=== PATIENT | male | born 1965 | race African-American/Black ===

== ENCOUNTER 2017-02-18 08:52 | Observation (INO) | payer OTHER ==
[2017-02-18] MEDS ORDERED: ASPIRIN 81 MG CHEW PO STA (09:17)
--- NOTE | 2017-02-18 09:20 | ED ---
General Adult HPI - General Chief complaint: Chest Pain Stated complaint: Chest pain Time Seen by Provider: 02/18/17 09:15 Source: patient, RN notes reviewed Mode of arrival: wheelchair Limitations: no limitations - History of Present Illness Initial comments: Patient is a pleasant 51-year-old male presenting to the emergency Department with chest discomfort. Symptoms have been intermittent for a couple of weeks. Discomfort is moderate at this time rated 5/10. Discomfort is ascribed as tightness without radiation. Mild associated dyspnea. No nausea or diaphoresis. Symptoms are worse with exertion. Patient has also been under increased stress recently. - Related Data Home Medications Medication Instructions Recorded Confirmed No Known Home Medications [No 02/18/17 02/18/17 Known Home Medications] Allergies Allergy/AdvReac Type Severity Reaction Status Date / Time No Known Allergies Allergy Verified 02/18/17 09:28 Review of Systems ROS Statement: Those systems with pertinent positive or pertinent negative responses have been documented in the HPI. ROS Other: All systems not noted in ROS Statement are negative. Constitutional: Denies: fever Eyes: Denies: eye pain ENT: Denies: ear pain Respiratory: Reports: dyspnea. Denies: cough Cardiovascular: Reports: chest pain Endocrine: Reports: fatigue Gastrointestinal: Denies: abdominal pain Genitourinary: Denies: dysuria Skin: Denies: rash Neurological: Denies: weakness Past Medical History Past Medical History: No Reported History History of Any Multi-Drug Resistant Organisms: None Reported Past Surgical History: No Surgical Hx Reported Past Psychological History: No Psychological Hx Reported Smoking Status: Never smoker Past Alcohol Use History: None Reported Past Drug Use History: None Reported General Exam Limitations: no limitations General appearance: alert, in no apparent distress Head exam: Present: atraumatic Eye exam: Present: normal appearance, PERRL ENT exam: Present: normal oropharynx Respiratory exam: Present: normal lung sounds bilaterally. Absent: chest wall tenderness Cardiovascular Exam: Present: regular rate, normal rhythm Expanded Peripheral pulses: 2+: Radial (R), Radial (L), Dorsalis Pedis (R), Dorsalis Pedis (L) GI/Abdominal exam: Present: soft. Absent: tenderness Extremities exam: Present: normal inspection. Absent: pedal edema, calf tenderness Neurological exam: Present: alert Psychiatric exam: Present: normal affect, normal mood Skin exam: Absent: rash Course Vital Signs 04/02/18/17 02/18/17 08:59 09:07 10:45 Temperature 98.5 F 97.5 F L Pulse Rate 93 85 79 Respiratory 18 20 15 Rate Blood Pressure 139/76 143/83 145/78 O2 Sat by Pulse 100 100 100 Oximetry EKG Findings - EKG Comments: EKG Findings:: Normal sinus rhythm 92. SD 128. QRS 82. QT 384. QTC 474. Normal axis. Borderline inferior Q waves. No acute ST change. Medical Decision Making - Medical Decision Making Patient reevaluated and resting comfortably in bed. Patient updated on results and plan. Case was discussed in detail with Dr. birmingham, who will admit for hospital call. Admission orders written. Cardiology consult placed. Patient will be started on IV heparin. - Lab Data Result diagrams: 02/18/17 09:30 02/18/17 09:30 Lab Results 02/18/17 02/18/17 02/18/17 Range/Units 09:30 09:30 09:30 WBC 6.4 (3.8-10.6) k/uL RBC 5.02 (4.30-5.90) m/uL Hgb 13.6 (13.0-17.5) gm/dL Hct 41.5 (39.0-53.0) % MCV 82.6 (80.0-100.0) fL MCH 27.1 (25.0-35.0) pg MCHC 32.8 (31.0-37.0) g/dL RDW 14.8 (11.5-15.5) % Plt Count 386 (150-450) k/uL Neutrophils % 71 % Lymphocytes % 20 % Monocytes % 4 % Eosinophils % 3 % Basophils % 0 % Neutrophils # 4.5 (1.3-7.7) k/uL Lymphocytes # 1.3 (1.0-4.8) k/uL Monocytes # 0.3 (0-1.0) k/uL Eosinophils # 0.2 (0-0.7) k/uL Basophils # 0.0 (0-0.2) k/uL PT (9.0-12.0) sec INR (<1.1) APTT (22.0-30.0) sec Sodium 140 (137-145) mmol/L Potassium 4.3 (3.5-5.1) mmol/L Chloride 104 (98-107) mmol/L Carbon Dioxide 25 (22-30) mmol/L Anion Gap 11 mmol/L BUN 13 (9-20) mg/dL Creatinine 0.84 (0.66-1.25) mg/dL Est GFR (MDRD) Af Amer >60 (>60 ml/min/1.73 sqM) Est GFR (MDRD) Non-Af >60 (>60 ml/min/1.73 sqM) Glucose 104 H (74-99) mg/dL Calcium 9.6 (8.4-10.2) mg/dL Magnesium 1.9 (1.6-2.3) mg/dL Total Bilirubin 0.5 (0.2-1.3) mg/dL AST 29 (17-59) U/L ALT 38 (21-72) U/L Alkaline Phosphatase 53 (38-126) U/L Total Creatine Kinase 242 H (55-170) U/L CK-MB (CK-2) 3.6 H* (0.0-2.4) ng/mL CK-MB (CK-2) Rel Index 1.5 Troponin I <0.012 (0.000-0.034) ng/mL Total Protein 7.4 (6.3-8.2) g/dL Albumin 4.3 (3.5-5.0) g/dL 02/18/17 Range/Units 09:30 WBC (3.8-10.6) k/uL RBC (4.30-5.90) m/uL Hgb (13.0-17.5) gm/dL Hct (39.0-53.0) % MCV (80.0-100.0) fL MCH (25.0-35.0) pg MCHC (31.0-37.0) g/dL RDW (11.5-15.5) % Plt Count (150-450) k/uL Neutrophils % % Lymphocytes % % Monocytes % % Eosinophils % % Basophils % % Neutrophils # (1.3-7.7) k/uL Lymphocytes # (1.0-4.8) k/uL Monocytes # (0-1.0) k/uL Eosinophils # (0-0.7) k/uL Basophils # (0-0.2) k/uL PT 10.2 (9.0-12.0) sec INR 1.0 (<1.1) APTT 26.3 (22.0-30.0) sec Sodium (137-145) mmol/L Potassium (3.5-5.1) mmol/L Chloride (98-107) mmol/L Carbon Dioxide (22-30) mmol/L Anion Gap mmol/L BUN (9-20) mg/dL Creatinine (0.66-1.25) mg/dL Est GFR (MDRD) Af Amer (>60 ml/min/1.73 sqM) Est GFR (MDRD) Non-Af (>60 ml/min/1.73 sqM) Glucose (74-99) mg/dL Calcium (8.4-10.2) mg/dL Magnesium (1.6-2.3) mg/dL Total Bilirubin (0.2-1.3) mg/dL AST (17-59) U/L ALT (21-72) U/L Alkaline Phosphatase (38-126) U/L Total Creatine Kinase (55-170) U/L CK-MB (CK-2) (0.0-2.4) ng/mL CK-MB (CK-2) Rel Index Troponin I (0.000-0.034) ng/mL Total Protein (6.3-8.2) g/dL Albumin (3.5-5.0) g/dL - Radiology Data Radiology results: image reviewed (Chest x-ray shows no acute process) Critical Care Time Critical Care Time: Yes Total Critical Care Time: 32 Disposition Clinical Impression: Unstable angina pectoris Disposition: ADMITTED IP TO THIS [facility] Time of Disposition: 11:01
[2017-02-18] MEDS ORDERED: NITROGLYCERIN SL TABS 0.4 MG TAB SUBLINGUAL SCH (09:30)
[2017-02-18 09:44] LABS: Basophils % (A) 0 %; CH 27.7; CHCM 33.6; Eosinophils # (A) 0.2 k/uL (0-0.7); Eosinophils % (A) 3 %; HCT 41.5 % (39.0-53.0); HGB 13.6 gm/dL (13.0-17.5); Luc # (Auto) 0.14; Luc % (Auto) 2; Lymphocytes # (A) 1.3 k/uL (1.0-4.8); Lymphocytes % (A) 20 %; MCH 27.1 pg (25.0-35.0); MCHC 32.8 g/dL (31.0-37.0); MCV 82.6 fL (80.0-100.0); Mean Platelet Volume 5.9; Monocytes # (A) 0.3 k/uL (0-1.0); Monocytes % (A) 4 %; Neutrophils # (A) 4.5 k/uL (1.3-7.7); Neutrophils % (A) 71 %; RBC 5.02 m/uL (4.30-5.90); RDW 14.8 % (11.5-15.5); WBC 6.4 k/uL (3.8-10.6); WBC (Perox) 6.47
[2017-02-18 09:52] LABS: ALT 38 U/L (21-72); AST 29 U/L (17-59); Alkaline Phosphatase 53 U/L (38-126); Anion Gap 11 mmol/L; Blood Urea Nitrogen 13 mg/dL (9-20); Calcium 9.6 mg/dL (8.4-10.2); Carbon Dioxide 25 mmol/L (22-30); Chloride 104 mmol/L (98-107); Glucose 104 mg/dL (74-99); Magnesium 1.9 mg/dL (1.6-2.3); Non-African American GFR(MDRD) >60 (>60 ml/min/1.73 sqM); Potassium 4.3 mmol/L (3.5-5.1); Sodium 140 mmol/L (137-145); Total Bilirubin 0.5 mg/dL (0.2-1.3); Total Protein 7.4 g/dL (6.3-8.2)
[2017-02-18 09:55] LABS: Partial Thromboplastin Time 26.3 sec (22.0-30.0); Prothrombin Time 10.2 sec (9.0-12.0)
[2017-02-18 10:13] LABS: Creatine Kinase 242 U/L (55-170)
[2017-02-18 10:26] LABS: Troponin I <0.012 ng/mL (0.000-0.034)
[2017-02-18 10:34] LABS: Creatine Kinase MB 3.6 ng/mL (0.0-2.4)
[2017-02-18] MEDS ORDERED: NITROGLYCERIN SL TABS 0.4 MG TAB SUBLINGUAL PRN (10:59)
[2017-02-18] MEDS ORDERED: HEPARIN SODIUM,PORCINE 5,000 UNIT/ML 1 ML VIAL IV PRN (10:59)
[2017-02-18] MEDS ORDERED: HEPARIN SODIUM,PORCINE 5,000 UNIT/ML 1 ML VIAL IV ONE (10:59)
--- NOTE | 2017-02-18 11:00 | XR ---
EXAMINATION TYPE: XR chest 2V DATE OF EXAM: 02/18/2017 10:01 AM COMPARISON: NONE HISTORY: Chest pain TECHNIQUE: Single frontal view of the chest is obtained. FINDINGS: There is no focal air space opacity, pleural effusion, or pneumothorax seen. The cardiac silhouette size is within normal limits. The osseous structures are intact. IMPRESSION: 1. No acute process.
[2017-02-18] MEDS: HEPARIN SODIUM,PORCINE/D5W PMX 25,000 UNIT in DEXTROSE/WATER 1 500ML.BAG IV SCH (11:26)
--- NOTE | 2017-02-18 13:29 | P.CRDCN ---
History of Present Illness Consult date: 02/18/17 History of present illness: This is a 51-year-old gentleman with no significant past medical history, has been experiencing chest pain for the last 6 months. 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 The pain is felt across the chest but sometimes more so on the left side and sometimes more so on the right side of the shoulder area. The pain increases on deep breathing. Chest is also slightly sore to touch. Movements of the chest also aggravate the pain. Because of ongoing chest pain patient came to the emergency room. His EKG showed a sinus rhythm without acute changes. Cardiac enzymes are negative so far. Patient doesn't have any history of previous myocardial infarctions or angina. He is not being treated for hypertension diabetes. He doesn't know his cholesterol status. He chest pains appear to be atypical clinically. We'll follow his cardiac enzymes studies. Echocardiogram will be done. If enzymes are negative, may do a stress echo in the morning. Review of Systems REVIEW OF SYSTEMS: CONSTITUTIONAL:. Patient is doing well. No complaints of fever or chills EYES: Denies diplopia, blurring of vision EARS, NOSE, MOUTH, THROAT: Denies headaches, denies sore throat. CARDIOVASCULAR: As per HPI RESPIRATORY: Denies shortness of breath, denies cough. GASTROINTESTINAL: Denies change in appetite, denies abdominal pain, denies diarrhea GENITOURINARY: Denies hematuria, denies infections. MUSKULOSKELETAL: Complaints of pain in the thigh area INTEGUMENTARY: Denies rash, denies eczema. NEUROLOGICAL: Denies focal weakness, or visual disturbance. Denies any dizziness or syncope PSYCHIATRIC: Denies anxiety, denies depression. HEMATOLOGIC/LYMPHATIC: Denies any bleeding, denies enlarged lymph nodes. Past Medical History Past Medical History: No Reported History History of Any Multi-Drug Resistant Organisms: None Reported Past Surgical History: No Surgical Hx Reported Past Anesthesia/Blood Transfusion Reactions: Unable to Obtain Additional Past Anesthesia/Blood Transfusion Reaction / Comment(s): Pt has never had anesthesia. Past Psychological History: Depression Additional Psychological History / Comment(s): Pt states he and his family just moved to this area from [facility] about 1.5 months ago. Pt states he just started a new job. He states he has been overwhelmed with stress lately. His spouse is disabled. He has 2 children, a boy age 14yrs who is healthy and a girl, age 13 who has down's syndrome and requires alot of care. Smoking Status: Never smoker Past Alcohol Use History: Occasional Past Drug Use History: None Reported - Past Family History Father History Unknown: Yes Mother Family Medical History: Hyperlipidemia, Hypertension Medications and Allergies Home Medications Medication Instructions Recorded Confirmed Type No Known Home Medications [No 02/18/17 02/18/17 History Known Home Medications] Allergies Allergy/AdvReac Type Severity Reaction Status Date / Time No Known Allergies Allergy Verified 02/18/17 09:28 Physical Exam Vitals: Vital Signs Temp Pulse Pulse Resp BP BP Pulse Ox 02/18/17 12:42 98.4 F 86 18 148/95 100 02/18/17 11:56 97.8 F 78 15 141/71 100 Intake and Output 02/17/17 02/18/17 02/18/17 22:59 06:59 14:59 Other: Weight 82.6 kg Patient Weight 02/19/17 06:59 Weight 82.6 kg GENERAL EXAM: Patient is alert and oriented and doesn't appear to be in any acute distress HEENT: Normocephalic. Normal reaction of pupils, equal size, normal range of extraocular motion. No erythema or exudates in the throat. NECK: No masses, no nuchal rigidity. CHEST: No chest wall deformity. LUNGS: Equal air entry with no crackles or wheeze. HEART: S1 and S2 normal with no audible mumurs or gallops. Regular rhythm, femorals equal on both sides.. ABDOMEN: No hepatosplenomegaly, normal bowel sounds, no guarding or rigidity. SKIN: No rashes CENTRAL NERVOUS SYSTEM: No focal deficits. EXTREMITIES: No cyanosis, clubbing or edema. Results 02/18/17 09:30 02/18/17 09:30 Current Medications Generic Name Dose Route Start Last Admin Trade Name Freq PRN Reason Stop Dose Admin Aspirin 325 mg 02/19/17 09:00 Aspirin PO DAILY DEION Heparin Sodium (Porcine) 0 unit 02/18/17 10:59 Heparin IV Q6HR PRN Low PTT Protocol Heparin Sodium/Dextrose 25,000 500 mls @ 19.59 mls/hr 02/18/17 11:00 11:26 unit/ IV Solution IV 12 units/kg/hr .Q24H DEION 19.59 mls/hr Protocol Administration 12 UNITS/KG/HR Nitroglycerin 1 inch 02/18/17 12:30 Nitro-Bid Oint TOPICAL Q6HR [facility] Nitroglycerin 0.4 mg 02/18/17 10:59 Nitrostat SUBLINGUAL Q5M PRN Chest Pain Sodium Chloride 10 ml 02/18/17 21:00 Saline Flush IV BID [facility] Intake and Output 02/17/17 02/18/17 02/18/17 22:59 06:59 14:59 Other: Weight 82.6 kg Patient Weight 02/19/17 06:59 Weight 82.6 kg EKG Interpretations (text) Sinus rhythm Assessment and Plan (1) Chest pain Status: Acute Plan: He chest pains appear to be atypical. Will follow Cardiac enzymes studies. Echocardiogram will be done. If enzymes are negative, patient will be scheduled for a stress echo in morning.
[2017-02-18 14:13] VITALS: BMI 23.3
[2017-02-18 15:30] LABS: Creatine Kinase 198 U/L (55-170)
[2017-02-18 15:43] LABS: Troponin I <0.012 ng/mL (0.000-0.034)
[2017-02-18 15:48] LABS: Creatine Kinase MB 2.8 ng/mL (0.0-2.4)
[2017-02-18 16:10] VITALS: RESP 16
[2017-02-18] MEDS: NITROGLYCERIN OINT 1 INCH/GM PACKET TOPICAL SCH (18:53)
[2017-02-18 21:51] LABS: Creatine Kinase 231 U/L (55-170)
[2017-02-18 22:05] LABS: Troponin I <0.012 ng/mL (0.000-0.034)
[2017-02-18 22:14] LABS: Creatine Kinase MB 2.6 ng/mL (0.0-2.4)
[2017-02-19] MEDS: NITROGLYCERIN OINT 1 INCH/GM PACKET TOPICAL SCH ×3 (00:08→12:15)
[2017-02-19 07:17] LABS: Mean Platelet Volume 5.9
[2017-02-19 07:28] LABS: Cholesterol 142 mg/dL (<200); HDL Cholesterol 80 mg/dL (40-60); Triglycerides 139 mg/dL (<150)
[2017-02-19] MEDS ORDERED: ASPIRIN 325 MG TAB PO SCH (09:00)
[2017-02-19] MEDS ORDERED: FAMOTIDINE 20 MG TAB PO SCH (10:30)
--- NOTE | 2017-02-19 10:33 | ECHOF ---
Referral Reason:Chest pain and cardiomyopathy MEASUREMENTS -------- HEIGHT: 182.9 cm WEIGHT: 82.6 kg BP: 116/76 IVSd: 1.0 cm (0.6 - 1.1) LVIDd: 4.5 cm (3.9 - 5.3) LVPWd: 1.1 cm (0.6 - 1.1) IVSs: 1.8 cm LVIDs: 3.0 cm LVPWs: 1.4 cm Ao Diam: 3.0 cm (2.0 - 3.7) AV Cusp: 2.3 cm (1.5 - 2.6) LA Diam: 3.7 cm (2.7 - 3.8) MV EXCURSION: 19.436 mm (> 18.000) MV EF SLOPE: 69 mm/s (70 - 150) EPSS: 0.4 cm MV E Jc: 0.48 m/s MV DecT: 295 ms MV A Jc: 0.59 m/s MV E/A Ratio: 0.80 RAP: 5.00 mmHg RVSP: 19.45 mmHg FINDINGS -------- Sinus rhythm. This was a technically good study. Left ventricular wall thickness is normal. Overall left ventricular systolic function is normal with, an EF between 55 - 60 %. The right ventricle is normal in size and function. The left atrium is normal in size. The right atrium is normal in size. Aortic valve is trileaflet and is mildly thickened. The mitral valve leaflets are mildly thickened. There is trace mitral regurgitation. Mild tricuspid regurgitation present. The right ventricular systolic pressure, as measured by Doppler, is 19.45mmHg. Pulmonic valve appears structurally normal. The aortic root size is normal. The pericardium is normal. CONCLUSIONS -------- 1. Sinus rhythm. 2. There is trace mitral regurgitation. 3. Mild tricuspid regurgitation present. 4. The right ventricular systolic pressure, as measured by Doppler, is 19.45mmHg. 5. Pulmonic valve appears structurally normal. 6. The aortic root size is normal. 7. The pericardium is normal. 8. This was a technically good study. 9. Left ventricular wall thickness is normal. 10. Overall left ventricular systolic function is normal with, an EF between 55 - 60 %. 11. The right ventricle is normal in size and function. 12. The left atrium is normal in size. 13. The right atrium is normal in size. 14. Aortic valve is trileaflet and is mildly thickened. 15. The mitral valve leaflets are mildly thickened. [employer] CENTRIFUGAL OPERATOR: Radhika Monahan RDCS
--- NOTE | 2017-02-19 11:40 | HP ---
DATE OF ADMISSION: 02/18/2017 PRESENTING COMPLAINT: Chest pain. HISTORY OF PRESENTING COMPLAINT: This is a 51-year-old patient whose family doctor is out of [place] has unremarkable past medical history. The patient is here with his . The patient started a new job, has got a daughter with Down syndrome. Patient's was in the hospital with uterine bleeding from fibroids. In addition to starting a new job, the patient feels very stressed out to the point of getting panic attacks. The patient for 2 months ( ) pressure across the chest, sometimes across, sometimes localized to the center, sometimes going to the right arm. Yesterday patient was a little bit short of breath. No perspiration, occasional dizziness, but patient does seem extremely anxious and states that. Hence, patient is admitted here to rule out cardiac cause. Patient has been in pretty good health otherwise, rather active. REVIEW OF SYSTEMS: CONSTITUTIONAL: None. HEENT: None. RESPIRATORY: None. CARDIOVASCULAR: As above. GASTROINTESTINAL: Epigastric pain. GENITOURINARY: None. MUSCULOSKELETAL: Some lower back pain. DERMATOLOGICAL: None. HEMATOLOGICAL: None. LYMPHATICS: None. PSYCHIATRY: Very anxious. NEUROLOGICAL: None. PAST MEDICAL HISTORY: None. PAST SURGICAL HISTORY: None. SOCIAL HISTORY: . Started a new job at a [employer]. with a disabled daughter with Down syndrome. No smoking. The patient has been drinking about 24 ounce 20 beers a week now. Family history of hypertension, hyperlipidemia. HOME MEDICATIONS: None. ALLERGIES: None. On examination, temperature 98, pulse 70, respiration 16, blood pressure 113/79, pulse ox 100% on 2 L. GENERAL APPEARANCE: Average built, lying in bed, very anxious appearing. EYES: Pupils equal. Conjunctivae normal. HENT: Oral cavity normal. NECK: JVD not raised. Mass not palpable. RESPIRATORY: Effort normal. LUNGS: Fair air entry. CARDIOVASCULAR: First and second sounds normal. No edema. ABDOMEN: Epigastric tenderness. Liver and spleen not palpable. LYMPHATIC: No lymph node palpable in neck or axillae. PSYCHIATRY: Alert and oriented x3. Mood and affect anxiety, depression. NEUROLOGICAL: Pupils equal. Cranial nerves grossly intact. Power and sensation grossly intact. INVESTIGATIONS: White count 6.4, hemoglobin 13.6. Potassium 4.3. BUN and creatinine are normal. Troponin x3 negative. EKG nonspecific changes. Chest x-ray nil acute. ASSESSMENT: 1. This is a patient for 2 months been having chest pain with some cardiac features and some atypical features. Patient otherwise at baseline in good health, rather active. This could well be psychosomatic, but need to rule out a cardiac cause. 2. Anxiety disorder uncontrolled from social stressors. 3. Chronic alcohol use. 4. Likely gastritis from alcohol use. PLAN: Patient is on aspirin, IV heparin, nitro paste. Cardiology has been consulted, who ordered a stress test. Patient advised against alcohol, will be started on Pepcid. Patient asked to seek psychological counseling . This discussed with the . Questions were answered. Patient advised to ( ). Patient will be established with Dr. Song as a family doctor.
[2017-02-19] MEDS: HEPARIN SODIUM,PORCINE/D5W PMX 25,000 UNIT in DEXTROSE/WATER 1 500ML.BAG IV SCH (12:14)
--- NOTE | 2017-02-19 12:15 | ECHOS ---
DATE OF SERVICE: 02/19/2017 AGE: 51Y SEX: M HT: 74 WT: 182 lbs. Protocol Rome: X Others: Stress Echo Stage: II Dur. of Exercise: 6 minutes *Heart Rate Blood Pressure *Rest: 74 Rest: 113/65 * *Max. Achieved: 156 Maximum BP: 199/82 85% PMHR: 145 100% PMHR: 171 *METS: 7 INDICATIONS: Chest pain. MEDICATIONS: Aspirin. CLINICAL INFORMATION: Chest pain, history of low back pain also. Resting ECG shows sinus rhythm, rate of 74 beats per minute, KS interval 0.16, QRS 0.08, normal ST-T waves. Utilizing a standard Rome protocol, a symptom limited treadmill test was performed. Patient exercised for total of 6 minutes, attained a peak heart rate of 156 beats per minute, which is approximately 91% predicted maximum heart rate without any chest pain or pressure or ST segment deviations indicative of ischemia or symptoms. No cardiac arrhythmias are noted. Baseline images show normal thickening and contractility without hypokinetic dyskinetic segment. Postexercise images show improved contractility and thickening in all segments, consistent with normal stress echocardiogram without any hypokinetic dyskinetic segments. 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 Normal stress echocardiogram. 2. Patient did not report any symptoms throughout the study. 3. Patient has average level of cardiopulmonary fitness as indicated by VO2 max and METs. Patient attained peak metabolic activity equivalent to 7 METs.
[2017-02-19 16:19] VITALS: BP 112/75; PULSE 70; TEMP 98.7
[2017-02-19] MEDS ORDERED: MELATONIN 1 MG TAB PO SCH (21:00)
--- NOTE | 2017-02-23 20:10 | DS ---
DATE OF ADMISSION: 02/18/2017 DATE OF DISCHARGE: 02/19/2017 FINAL DIAGNOSIS(ES): 1. Left anterior chest wall pain, could be musculoskeletal possibly psychosomatic too. 2. Anxiety disorder uncontrolled from social stresses. 3. Chronic alcohol use. 4. Likely gastritis from alcohol use. HOSPITAL COURSE: This patient being treated for stressors, a new job, adopted daughter who is disabled presented with chest pain. Troponins were negative. LDL was 34. Stress echocardiogram was negative. The patient and counselled at length. CONSULTATIONS: Dr. Ding cardiology. On examination, lungs are clear. CARDIOVASCULAR: First and second sounds normal. Some reproducible pain over the left chest wall. DISCHARGE MEDICATIONS: Prilosec 20 mg p.o. b.i.d. Follow-up with Dr. Song in one week. Follow-up with Dr. Pickering ).
== END 2017-02-19 17:00 | disposition home or self-care (01) ==
LOC: EC 08:52 → 3OBS 10:59
PROVIDERS: ADMIT Hospitalist; ATTEND Hospitalist
DX: R07.89 Other chest pain (principal); R06.00 Dyspnea, unspecified; F41.9 Anxiety disorder, unspecified; F43.9 Reaction to severe stress, unspecified; Z82.49 Family history of ischemic heart disease and other diseases of the circulatory system; Z72.89 Other problems related to lifestyle
CPT/HCPCS: 96376 ×2; 96365 ×2; 96366 ×2; 99291; 36415; 94760; 93005; 93017; 93306; 93350; 80061; 80053; 82550; 82553; 83735; 84484; 85025; 85049; 85610; 85730 ×2; 71020; G0378 ×2; J1644 ×2; 96374

== ENCOUNTER 2017-04-14 11:20 | Emergency (ER) | payer BC, OTHER ==
[2017-04-14 11:32] VITALS: BP 120/77; PULSE 78; RESP 20; TEMP 98.4
--- NOTE | 2017-04-14 11:54 | ED ---
General Adult HPI - General Chief complaint: Recheck/Abnormal Lab/Rx Stated complaint: Vomiting Time Seen by Provider: 04/14/17 11:30 Source: patient, RN notes reviewed Mode of arrival: ambulatory Limitations: no limitations - History of Present Illness Initial comments: This is a 51-year-old male presents emergency department stating at 4:30 this morning he vomited times one had diarrhea times one. He called into work because he didn't think he could work feeling this bad. Patient states since then he has not vomited or had any more diarrhea and he slowly feeling better. Patient states he has not taken any fluids in or eaten since. Patient denies any fever chills per patient denies any abdominal pain. Patient states he has right sided lateral back pain possibly from something he picked up at work. Patient states it only hurts if he takes a deep breath. Patient denies any cough patient denies any shortness of breath or difficulty breathing. Patient denies any chest pain. Patient denies any palpitations. - Related Data Previous Rx's Medication Instructions Recorded Omeprazole [PriLOSEC] 20 mg PO AC-BID #60 cap 02/19/17 Ibuprofen [Motrin] 600 mg PO Q6HR PRN #20 tab 04/14/17 Allergies Allergy/AdvReac Type Severity Reaction Status Date / Time No Known Allergies Allergy Verified 04/14/17 11:32 Review of Systems ROS Statement: Those systems with pertinent positive or pertinent negative responses have been documented in the HPI. ROS Other: All systems not noted in ROS Statement are negative. Past Medical History Past Medical History: No Reported History History of Any Multi-Drug Resistant Organisms: None Reported Past Surgical History: No Surgical Hx Reported Past Anesthesia/Blood Transfusion Reactions: Unable to Obtain Additional Past Anesthesia/Blood Transfusion Reaction / Comment(s): Pt has never had anesthesia. Past Psychological History: Depression Additional Psychological History / Comment(s): Pt states he and his family just moved to this area from [facility] about 1.5 months ago. Pt states he just started a new job. He states he has been overwhelmed with stress lately. His spouse is disabled. He has 2 children, a boy age 14yrs who is healthy and a girl, age 13 who has down's syndrome and requires alot of care. Smoking Status: Never smoker Past Alcohol Use History: Occasional Past Drug Use History: None Reported - Past Family History Father History Unknown: Yes Mother Family Medical History: Hyperlipidemia, Hypertension General Exam - General Exam Comments Initial Comments: GENERAL: Patient is well-developed and well-nourished. Patient is nontoxic and well- hydrated and is in no acute distress. ENT: Neck is soft and supple. No significant lymphadenopathy is noted. Oropharynx is clear. Moist mucous membranes. Neck has full range of motion without eliciting any pain. EYES: The sclera were anicteric and conjunctiva were pink and moist. Extraocular movements were intact and pupils were equal round and reactive to light. Eyelids were unremarkable. PULMONARY: Unlabored respirations. Good breath sounds bilaterally. No audible rales rhonchi or wheezing was noted. CARDIOVASCULAR: There is a regular rate and rhythm without any murmurs gallops or rubs. ABDOMEN: Soft and nontender with normal bowel sounds. No palpable organomegaly was noted. There is no palpable pulsatile mass. SKIN: Skin is clear with no lesions or rashes and otherwise unremarkable. NEUROLOGIC: Patient is alert and oriented x3. Cranial nerves II through XII are grossly intact. Motor and sensory are also intact. Normal speech, volume and content. Symmetrical smile. MUSCULOSKELETAL: Normal extremities with adequate strength and full range of motion. No lower extremity swelling or edema. No calf tenderness. LYMPHATICS: No significant lymphadenopathy is noted PSYCHIATRIC: Normal psychiatric evaluation. Normal interpersonal interactions appears functionally intact in deals appropriately with others. No signs of depression. No signs of anxiety. Limitations: no limitations Course Vital Signs 04/14/17 11:30 Temperature 98.4 F Pulse Rate 78 Respiratory 20 Rate Blood Pressure 120/77 O2 Sat by Pulse 99 Oximetry Medical Decision Making - Medical Decision Making Patient stated he has no symptoms currently and he needs a work note. Disposition Clinical Impression: Gastroenteritis Disposition: HOME SELF-CARE Condition: Good Instructions: Gastroenteritis (ED) Prescriptions: Ibuprofen [Motrin] 600 mg PO Q6HR PRN #20 tab PRN Reason: For pain Referrals: Raquel Abraham DO [Primary Care Provider] - 1-2 days Time of Disposition: 11:54
[2017-04-14] MEDS ORDERED: ONDANSETRON 4 MG ODT STARTER PACK 2 TAB BTL PO STA (11:55)
== END 2017-04-14 12:10 | disposition home or self-care (01) ==
LOC: EC 11:20
DX: K52.9 Noninfective gastroenteritis and colitis, unspecified (principal); M54.9 Dorsalgia, unspecified
CPT/HCPCS: 99283; S0119

== ENCOUNTER 2018-02-12 13:00 | Observation (INO) | payer BC, OTHER ==
--- NOTE | 2018-02-12 13:57 | XR ---
EXAMINATION TYPE: XR chest 2V DATE OF EXAM: 02/12/2018 COMPARISON: 02/18/2017 HISTORY: Chest pain TECHNIQUE: Frontal and lateral views of the chest are obtained. FINDINGS: There is no focal air space opacity. No evidence for pneumothorax. No pleural effusion. The cardiac silhouette size is within normal limits. The osseous structures are grossly intact. IMPRESSION: 1. No acute cardiopulmonary process.
[2018-02-12 14:09] LABS: Basophils % (A) 0 %; Eosinophils # (A) 0.2 k/uL (0-0.7); Eosinophils % (A) 3 %; HCT 41.8 % (39.0-53.0); HGB 13.9 gm/dL (13.0-17.5); Lymphocytes # (A) 1.6 k/uL (1.0-4.8); Lymphocytes % (A) 27 %; MCH 26.2 pg (25.0-35.0); MCHC 33.2 g/dL (31.0-37.0); MCV 78.9 fL (80.0-100.0); Microcytosis Slight; Monocytes # (A) 0.4 k/uL (0-1.0); Monocytes % (A) 6 %; Neutrophils # (A) 3.7 k/uL (1.3-7.7); Neutrophils % (A) 62 %; Platelet Count 339 k/uL (150-450); RDW 15.4 % (11.5-15.5); WBC 5.9 k/uL (3.8-10.6)
[2018-02-12 14:20] LABS: Partial Thromboplastin Time 26.3 sec (22.0-30.0)
--- NOTE | 2018-02-12 14:23 | ED ---
General Adult HPI - General Chief complaint: Chest Pain Stated complaint: Chest pain,Sob Time Seen by Provider: 02/12/18 13:10 Source: patient, RN notes reviewed, old records reviewed Mode of arrival: wheelchair Limitations: no limitations - History of Present Illness Initial comments: This is a 52-year-old male to the ER for evaluation of chest pain history of chest pain and angina. No recent symptoms. Patient states he's had some increased stress at work new job, new position. states she is not feeling well, chest pain started and not feeling well started today with shortness of breath. No prior history of heart attack. Patient denies drugs or alcohol. Patient just states he's not feeling himself and can't seem to figure out why he is feeling so out of it. No travel history no sick contacts. - Related Data Home Medications Medication Instructions Recorded Confirmed No Known Home Medications [No 02/12/18 02/12/18 Known Home Medications] Allergies Allergy/AdvReac Type Severity Reaction Status Date / Time No Known Allergies Allergy Verified 02/12/18 13:19 Review of Systems ROS Statement: Those systems with pertinent positive or pertinent negative responses have been documented in the HPI. ROS Other: All systems not noted in ROS Statement are negative. Past Medical History Past Medical History: Chest Pain / Angina History of Any Multi-Drug Resistant Organisms: None Reported Past Surgical History: No Surgical Hx Reported Past Anesthesia/Blood Transfusion Reactions: Unable to Obtain Additional Past Anesthesia/Blood Transfusion Reaction / Comment(s): Pt has never had anesthesia. Past Psychological History: Depression Smoking Status: Never smoker Past Alcohol Use History: Occasional Past Drug Use History: None Reported - Past Family History Father History Unknown: Yes Mother Family Medical History: Hyperlipidemia, Hypertension General Exam Limitations: no limitations General appearance: alert, in no apparent distress Head exam: Present: atraumatic, normocephalic, normal inspection Eye exam: Present: normal appearance, PERRL, EOMI. Absent: scleral icterus, conjunctival injection, periorbital swelling ENT exam: Present: normal exam, mucous membranes moist Neck exam: Present: normal inspection. Absent: tenderness, meningismus, lymphadenopathy Respiratory exam: Present: normal lung sounds bilaterally. Absent: respiratory distress, wheezes, rales, rhonchi, stridor Cardiovascular Exam: Present: regular rate, normal rhythm, normal heart sounds. Absent: systolic murmur, diastolic murmur, rubs, gallop, clicks GI/Abdominal exam: Present: soft, normal bowel sounds. Absent: distended, tenderness, guarding, rebound, rigid Extremities exam: Present: normal inspection, full ROM, normal capillary refill. Absent: tenderness, pedal edema, joint swelling, calf tenderness Back exam: Present: normal inspection Neurological exam: Present: alert, oriented X3, CN II-XII intact Psychiatric exam: Present: normal affect, normal mood Skin exam: Present: warm, dry, intact, normal color. Absent: rash Course Vital Signs 02/12/18 02/12/18 02/12/18 13:06 13:38 14:30 Temperature 98.5 F Pulse Rate 67 78 77 Respiratory 18 18 18 Rate Blood Pressure 142/79 124/81 131/89 O2 Sat by Pulse 95 98 98 Oximetry - Reevaluation(s) Reevaluation #1: 02/12/18 16:14 Patient remains episodic chest pain, not feeling well EKG Findings - EKG Comments: EKG Findings:: EKG shows sinus rhythm rate of 70, NV 1:30, QRS 100, QTC 427 Medical Decision Making - Medical Decision Making 52 male the ER for evaluation of chest pain. Continue chest pain here in the ER , troponin negative we'll admit for cardiac observation - Lab Data Result diagrams: 02/12/18 13:24 02/12/18 13:24 Lab Results 02/12/18 02/12/18 02/12/18 Range/Units 13:24 13:24 13:24 WBC 5.9 (3.8-10.6) k/uL RBC 5.30 (4.30-5.90) m/uL Hgb 13.9 (13.0-17.5) gm/dL Hct 41.8 (39.0-53.0) % MCV 78.9 L (80.0-100.0) fL MCH 26.2 (25.0-35.0) pg MCHC 33.2 (31.0-37.0) g/dL RDW 15.4 (11.5-15.5) % Plt Count 339 (150-450) k/uL Neutrophils % 62 % Lymphocytes % 27 % Monocytes % 6 % Eosinophils % 3 % Basophils % 0 % Neutrophils # 3.7 (1.3-7.7) k/uL Lymphocytes # 1.6 (1.0-4.8) k/uL Monocytes # 0.4 (0-1.0) k/uL Eosinophils # 0.2 (0-0.7) k/uL Basophils # 0.0 (0-0.2) k/uL Microcytosis Slight PT (9.0-12.0) sec INR (<1.2) APTT (22.0-30.0) sec Sodium 144 (137-145) mmol/L Potassium 4.0 (3.5-5.1) mmol/L Chloride 106 (98-107) mmol/L Carbon Dioxide 22 (22-30) mmol/L Anion Gap 16 mmol/L BUN 12 (9-20) mg/dL Creatinine 0.70 (0.66-1.25) mg/dL Est GFR (CKD-EPI)AfAm >90 (>60 ml/min/1.73 sqM) Est GFR (CKD-EPI)NonAf >90 (>60 ml/min/1.73 sqM) Glucose 97 (74-99) mg/dL Calcium 9.5 (8.4-10.2) mg/dL Magnesium 2.0 (1.6-2.3) mg/dL Total Bilirubin 0.3 (0.2-1.3) mg/dL AST 33 (17-59) U/L ALT 34 (21-72) U/L Alkaline Phosphatase 54 (38-126) U/L Total Creatine Kinase 315 H (55-170) U/L CK-MB (CK-2) 4.9 H* (0.0-2.4) ng/mL CK-MB (CK-2) Rel Index 1.6 Troponin I <0.012 (0.000-0.034) ng/mL Total Protein 7.0 (6.3-8.2) g/dL Albumin 4.1 (3.5-5.0) g/dL 02/12/18 Range/Units 13:24 WBC (3.8-10.6) k/uL RBC (4.30-5.90) m/uL Hgb (13.0-17.5) gm/dL Hct (39.0-53.0) % MCV (80.0-100.0) fL MCH (25.0-35.0) pg MCHC (31.0-37.0) g/dL RDW (11.5-15.5) % Plt Count (150-450) k/uL Neutrophils % % Lymphocytes % % Monocytes % % Eosinophils % % Basophils % % Neutrophils # (1.3-7.7) k/uL Lymphocytes # (1.0-4.8) k/uL Monocytes # (0-1.0) k/uL Eosinophils # (0-0.7) k/uL Basophils # (0-0.2) k/uL Microcytosis PT 10.0 (9.0-12.0) sec INR 1.0 (<1.2) APTT 26.3 (22.0-30.0) sec Sodium (137-145) mmol/L Potassium (3.5-5.1) mmol/L Chloride (98-107) mmol/L Carbon Dioxide (22-30) mmol/L Anion Gap mmol/L BUN (9-20) mg/dL Creatinine (0.66-1.25) mg/dL Est GFR (CKD-EPI)AfAm (>60 ml/min/1.73 sqM) Est GFR (CKD-EPI)NonAf (>60 ml/min/1.73 sqM) Glucose (74-99) mg/dL Calcium (8.4-10.2) mg/dL Magnesium (1.6-2.3) mg/dL Total Bilirubin (0.2-1.3) mg/dL AST (17-59) U/L ALT (21-72) U/L Alkaline Phosphatase (38-126) U/L Total Creatine Kinase (55-170) U/L CK-MB (CK-2) (0.0-2.4) ng/mL CK-MB (CK-2) Rel Index Troponin I (0.000-0.034) ng/mL Total Protein (6.3-8.2) g/dL Albumin (3.5-5.0) g/dL - Radiology Data Radiology results: report reviewed (Chest x-rays negative for acute disease), image reviewed Disposition Clinical Impression: Chest pain, Unstable angina pectoris Disposition: ADMITTED IP TO THIS [facility] Condition: Undetermined Referrals: None,Stated [Primary Care Provider] - 1-2 days
[2018-02-12 14:26] LABS: ALT 34 U/L (21-72); AST 33 U/L (17-59); Albumin 4.1 g/dL (3.5-5.0); Alkaline Phosphatase 54 U/L (38-126); Anion Gap 16 mmol/L; Blood Urea Nitrogen 12 mg/dL (9-20); Calcium 9.5 mg/dL (8.4-10.2); Carbon Dioxide 22 mmol/L (22-30); Chloride 106 mmol/L (98-107); Glucose 97 mg/dL (74-99); Sodium 144 mmol/L (137-145); Total Bilirubin 0.3 mg/dL (0.2-1.3)
[2018-02-12 14:44] LABS: Creatine Kinase 315 U/L (55-170)
[2018-02-12 14:57] LABS: Troponin I <0.012 ng/mL (0.000-0.034)
[2018-02-12] MEDS ORDERED: MORPHINE SULFATE 4MG/4ML SYRG IV PRN (16:08)
[2018-02-12] MEDS ORDERED: ASPIRIN 81 MG PO STA (16:08)
[2018-02-12] MEDS ORDERED: NITROGLYCERIN SL TABS 0.4 MG TAB SUBLINGUAL PRN (16:08)
[2018-02-12] MEDS ORDERED: RX INFO: IV CONTRAST WAS GIVEN 1 EACH MISC MISCELLANE PRN (17:12)
[2018-02-12] MEDS ORDERED: ACETAMINOPHEN TAB 325 MG TAB PO PRN (17:27)
[2018-02-12] MEDS ORDERED: KETOROLAC 30 MG/ML 1 ML VIAL IVP PRN (17:27)
[2018-02-12] MEDS ORDERED: NALOXONE 0.4 MG/ML 1 ML VIAL IV PRN (17:27)
[2018-02-12] MEDS ORDERED: HYDROcodone/APAP 5-325MG 1 EACH TAB PO PRN (17:27)
[2018-02-12] MEDS ORDERED: ALPRAZolam 0.25 MG TAB PO PRN (17:27)
--- NOTE | 2018-02-12 17:29 | P.HPIM ---
History of Present Illness H&P Date: 02/12/18 Chief Complaint: chest pain Patient is a 52-year-old -[place] male with no significant past medical history who presented to the hospital with complaints of chest pain. In the ER he underwent an extensive evaluation. On arrival he was slightly hypertensive blood pressure 142/79 but this resolved without intervention. Initial laboratory analysis showed slightly elevated CK-MB at 4.9. Chest x-ray showed no acute cardiopulmonary process. Initial EKG was unremarkable. He was admitted for chest pain evaluation. Patient seen and examined at bedside. He states that he has been having left- sided chest pain for the last 2 weeks. He overall just does not feel right. He states that he has had increased stress and felt anxious over the last 2 weeks. He states that the chest pain mostly occurs at rest. It seems better with movement. He states that some of this may be stress related. He has had increased shortness of breath with his anxiety. He denies any numbness, tingling, lightheadedness, dizziness. He has not fainted or passed out. He has not had palpitations. He denies any nausea or vomiting. He has not had anything similar. He does do a lot of heavy lifting at work. He reports that his maternal grandfather of a massive heart attack at age 63. He does not smoke but does take it daily Maddie aspirin. He does not have a PCP. He was seen here exactly one year ago and underwent a stress test which was negative. He has been having difficulty sleeping secondary to his stress. He also reports that he has had a lump under his tongue for over the last year. He has not had this investigated in the past. Review of Systems Pertinent positives and negatives as per HPI, remainder of 10 point review of systems is negative. Past Medical History Past Medical History: Chest Pain / Angina Additional Past Medical History / Comment(s): past stress test, anx/depression, under stress latley,restless at night and difficulty sleeping. "i have a lump underneath tongue" History of Any Multi-Drug Resistant Organisms: None Reported Past Surgical History: Tonsillectomy Past Anesthesia/Blood Transfusion Reactions: No Reported Reaction Additional Past Anesthesia/Blood Transfusion Reaction / Comment(s): Pt has never had anesthesia. Past Psychological History: Depression Additional Psychological History / Comment(s): He states he has been overwhelmed with stress lately(between work and home). His spouse is disabled. He has 2 children, a boy age 14yrs who is healthy and a girl, age 13 who has down's syndrome and requires alot of care. pt works for [employer]. In past served in the [employer] Smoking Status: Never smoker Past Alcohol Use History: Occasional Additional Past Alcohol Use History / Comment(s): 6-7 beer per week Past Drug Use History: None Reported - Past Family History Father History Unknown: Yes Mother Family Medical History: Hyperlipidemia, Hypertension Additional Family Medical History / Comment(s): Maternal grandfather with UT at age 63. Medications and Allergies Home Medications Medication Instructions Recorded Confirmed Type No Known Home Medications [No 02/12/18 02/12/18 History Known Home Medications] Allergies Allergy/AdvReac Type Severity Reaction Status Date / Time No Known Allergies Allergy Verified 02/12/18 13:19 Physical Exam Osteopathic Statement: *. No significant issues noted on an osteopathic structural exam other than those noted in the History and Physical/Consult. Vitals: Vital Signs Temp Pulse Resp BP Pulse Ox 02/12/18 16:24 98.6 F 77 18 123/76 97 02/12/18 14:30 77 18 131/89 98 02/12/18 13:38 78 18 124/81 98 02/12/18 13:06 98.5 F 67 18 142/79 95 Intake and Output 02/12/18 02/12/18 02/12/18 06:59 14:59 22:59 Other: Weight 79.379 kg General: non toxic, no distress, appears at stated age, normal weight Derm: no unusual rashes/lesions no unusual ecchymoses, warm, dry Head: atraumatic, normocephalic, symmetric Eyes: EOMI, no lid lag, anicteric sclera, pupils equal round reactive to light ENT: Nose and ears atraumatic, no thrush, no pharyngeal erythema Neck: No thyromegaly, no cervical lymphadenopathy, trachea midline, supple, pain to palpation over her left clavicle. Mouth: no lip lesion, mucus membranes moist, large dime size mass right lower jaw without fluctuance, no erythema or bleeding, no large dental caries. Cardiovascular: S1S2 reg, no murmur, positive posterior tibial pulse bilateral, no edema, capillary refill less than 2 seconds Lungs: CTA bilateral, no rhonchi, no rales , no accessory muscle use Abdominal: soft, nontender to palpation, no guarding, no appreciable organomegaly, normal bowel sounds Ext: no gross muscle atrophy, muscle strength grossly intact all 4 extremities , no contractures, pain to clavicle with internal rotation of the elbow flexed at 90. Pain at the head of the left clavicle with empty can test Neuro: CN II-XI grossly intact, light touch intact all 4 extremities, finger to nose within normal limits, Psych: Alert, oriented, appropriate affect Results CBC & Chem 7: 02/12/18 13:24 04 13:24 Labs: Abnormal Lab Results - Last 24 Hours (Table) 02/12/18 02/12/18 Range/Units 13:24 13:24 MCV 78.9 L (80.0-100.0) fL Total Creatine Kinase 315 H (55-170) U/L CK-MB (CK-2) 4.9 H* (0.0-2.4) ng/mL Comments: EKG is reviewed by myself reveals normal sinus rhythm at a rate of 70. No significant ST-T wave changes. Appears to have LVH. Normal access and normal intervals. Chest x-ray is reviewed by me reveals no acute process. Chest x-ray: report reviewed, image reviewed Thrombosis Risk Factor Assmnt - DVT/VTE Prophylaxis DVT/VTE Prophylaxis: Low risk, early ambulation encouraged Assessment and Plan Assessment: Chest pain, likely musculoskeletal -Check CT of chest to ensure that there is no mass. The left clavicle for a clavicular fracture. If pain continues would likely refer to orthopedics -Serial enzymes -Cardiology consult in a.m. as ordered by emergency department -Aspirin -Telemetry -Pain control Palpable mass right mouth -Check CT soft tissue of the neck -Denies history of smoking -If CT negative referral to dentist Alcohol misuse -Appears to be at low risk for alcohol withdrawal -Counseled on quitting Depression -If workup is negative could consider starting patient on SSRI if he will be following up with PCP. Surrogate decision-maker: CODE STATUS: Full DVT prophylaxis: Early ambulation Discussed with: Patient, RN, ED physician Anticipated discharge: [address]: Home A total of 45 minutes was spent on the care of this complex patient more than 50 % of the time was spent in counseling and care coordination.
[2018-02-12 18:54] VITALS: RESP 16
--- NOTE | 2018-02-12 19:12 | CT ---
EXAMINATION TYPE: CT neck chest w con DATE OF EXAM: 02/12/2018 6:48 PM COMPARISON: NONE HISTORY: Left upper side chest pain. CT DLP: 779.1 mGycm Automated exposure control for dose reduction was used. CONTRAST: CT scan of the neck and chest is performed following with IV Contrast, patient injected with 100ml mL of Isovue 300. Axial images are obtained, coronal and sagittal reformatted images are reviewed. FINDINGS: The lungs are clear of infiltrate. There is no evidence of a pulmonary mass. There is no pleural effu ryan. There is no pericardial effusion. I see no mediastinal adenopathy. There are no hilar masses. H eart size is normal. There is no evidence of aortic aneurysm or dissection. Ascending aorta measures 3.2 cm. There is no evidence of a definite thyroid mass. There is normal branching pattern of the great vesse ls on the aortic arch. There is normal contrast opacification of the carotid arteries and jugular vei ns. There is bilateral contrast opacification of the vertebral arteries. I see no significant cervical adenopathy. There is complete opacification of the left maxillary sinus. The parotid glands are symmetric. Subman dibular salivary glands are symmetric. There are moderate spondylotic changes in the cervical spine. Epiglottis is normal. Subglottic trachea appears normal. Tonsils appear normal. Adenoids appear russel l. The thoracic spine is intact. There is normal aeration of the mastoid sinuses. IMPRESSION: There is opacification left maxillary sinus with extension through the medial wall into the ethmoid sinus. I see no focal bone destruction. Direct visualization is recommended to exclude a mass or polyp. This should be visible at the middle nasal turbinate. No significant abnormality seen within the chest. Follow-up is recommended.
[2018-02-12 20:22] LABS: Creatine Kinase 245 U/L (55-170)
[2018-02-12 20:34] LABS: Troponin I <0.012 ng/mL (0.000-0.034)
[2018-02-12] MEDS: METOPROLOL TARTRATE 25 MG TAB PO SCH (20:34)
[2018-02-12] MEDS: FAMOTIDINE 20 MG TAB PO SCH (20:34)
[2018-02-12 20:42] LABS: Creatine Kinase MB 4.9 ng/mL (0.0-2.4)
[2018-02-12] MEDS ORDERED: MELATONIN 3 MG TABLET PO PRN (21:00)
[2018-02-13 02:48] LABS: Cholesterol 135 mg/dL (<200); HDL Cholesterol 104 mg/dL (40-60); LDL Cholesterol,Calculated 20 mg/dL (0-99); Triglycerides 53 mg/dL (<150)
[2018-02-13 02:59] LABS: Creatine Kinase 200 U/L (55-170)
[2018-02-13 03:12] LABS: Troponin I <0.012 ng/mL (0.000-0.034)
[2018-02-13 03:21] LABS: Creatine Kinase MB 3.4 ng/mL (0.0-2.4)
[2018-02-13] MEDS ORDERED: ASPIRIN 325 MG TAB PO SCH (09:00)
--- NOTE | 2018-02-13 09:44 | CONS ---
CONSULTATION Mr. Pereira is a 52-year-old male who does not follow with a physician on a regular basis, who presented to the emergency room with symptoms of chest discomfort. He has been having discomfort for about a couple weeks. The discomfort is worse when he is under mental stress. He is active physically and has no significant associated symptoms. He denies any exertional dyspnea. No exertional chest discomfort. He has no history of PND, orthopnea, or peripheral edema. No dizziness, palpitation, or syncope. He bikes to work without any difficulty. He does heavy lifting at work. His coronary risk factors are negative for hypertension, hyperlipidemia, or documented diabetes. He is a nonsmoker. He has a history of anxiety as well as history of depression and he feels that his anxiety level is worse recently and he has not been sleeping well. MEDICATION: At home include none. SOCIAL HISTORY: He drinks 2-3 beers every other day and drinks caffeine daily. REVIEW OF SYSTEMS: RESPIRATORY system: He denies any recent wheezing. No cough. No history of documented obstructive lung disease. GI system: No recent GI bleeding. No peptic ulcer disease. system: No dysuria or hematuria. Nervous system: No stroke or seizure. PHYSICAL EXAMINATION: A 52-year-old male, alert, oriented, in no apparent distress. Blood pressure 127/80 with a heart in the 60s. HEAD: Normocephalic. Eyes sclerae anicteric. Neck good upstroke. No jugular venous distention. LUNGS: Clear to auscultation. Heart regular rate and rhythm S1, S2. No S3, no S4. No murmur, rub, and chest wall tenderness noted in the left subclavian area. ABDOMEN: Soft, nontender. Positive bowel sounds. No megaly. EXTREMITIES: No edema. Intact pulses. LAB DATA: Lab data revealed troponin less than 0.012 for 3 samples. His CK is mildly elevated. His cholesterol is 135, LDL of 20. BUN and creatinine 12 and 0.7, and hemoglobin of 13.9. His chest x-ray revealed no acute infiltrate. His EKG reveals sinus mechanism with a mild voltage criteria for LVH, but no acute changes. IMPRESSION: 1. Symptoms of chest discomfort, atypical for ischemic heart disease, probable musculoskeletal in etiology. The patient underwent stress echocardiogram in January of 2017 that showed no evidence of stress-induced ischemia with normal left ventricular systolic function. 2. Probable history of anxiety and depression. RECOMMENDATION: From the cardiac standpoint, I see no evidence to suggest active cardiac disease at this time. I would not recommend any further cardiac workup. The patient had a stress test and an echocardiogram done a year ago. They were unremarkable. From the cardiac standpoint, he is stable to be discharged home. Thank you for this consult. We will follow with you. SHEILA / JESSICA: [id number] /
[2018-02-13] MEDS: METOPROLOL TARTRATE 25 MG TAB PO SCH (10:10)
[2018-02-13] MEDS: FAMOTIDINE 20 MG TAB PO SCH (10:13)
--- NOTE | 2018-02-13 11:28 | P.DS ---
Providers Date of admission: 02/12/18 16:08 Expected date of discharge: 02/13/18 Attending physician: Gifty Baca DO Consults: 02/12/18 16:08 Consult Physician Urgent Consulting Provider: Shane Merritt Consult Reason/Comments: cp Do you want consulting provider notified?: Yes Primary care physician: Stated None - Discharge Diagnosis(es) (1) Costochondritis Status: Acute (2) Anxiety Status: Acute (3) Sinusitis Status: Acute (4) Alcohol use Status: Acute Hospital Course: Patient is a 52-year-old -[place] male with no significant past medical history who presented to the hospital with complaints of chest pain. In the ER he underwent an extensive evaluation. On arrival he was slightly hypertensive blood pressure 142/79 but this resolved without intervention. Initial laboratory analysis showed slightly elevated CK-MB at 4.9. Chest x-ray showed no acute cardiopulmonary process. Initial EKG was unremarkable. He was admitted for chest pain evaluation. Chest pain appears noncardiac in nature and was reproducible on palpation of chest wall. Patient also reported mass in the bottom of right mouth. He underwent a CT of the chest and soft tissue of the neck. He was found to have maxillary sinusitis with erosion into the ethmoid sinus. He did not have any signs of chronic sinusitis such as headaches , facial pain, runny nose, stuffy nose, or postnasal drip. We did discuss at length seeing an ENT upon discharge. He wants to establish a PCP first and then make an ENT appointment. He did discuss that this could be a mass or polyp any intervention and that he likely will need direct visualization with a scope. He is worried about having to take time off work. Chest portion of the CT was negative. He was seen by cardiology who did not feel he needed a repeat cardiac workup as he had negative exercise stress echo one year ago. He was determined he likely had costochondritis was discharged home with a Medrol Dosepak. We also discussed starting a medication for anxiety or depression. He like to try taking Quirino's wort again [id number] that this helped in the past. He did give him a small amount of Xanax to help with any acute anxiety episodes that are causing shortness of breath or dizziness. He really wants to find a primary care physician and he has been referred to Dr. Deny Ayala. He was discharged home in stable condition. Patient seen and examined at bedside. Vital signs reviewed and stable. General: non toxic, no distress, appears at stated age Derm: warm, dry Head: atraumatic, normocephalic, symmetric Eyes: EOMI, no lid lag, anicteric sclera Mouth: no lip lesion, mucus membranes moist Cardiovascular: S1S2 reg, no murmur, positive posterior tibial pulse bilateral, Lungs: CTA bilateral, no rhonchi, no rales , no accessory muscle use Abdominal: soft, nontender to palpation, no guarding, no appreciable organomegaly Ext: no gross muscle atrophy, no edema, no contractures Neuro: CN II-XI grossly intact, no focal neuro deficits Psych: Alert, oriented, appropriate affect A total of 25 minutes of time were spent preparing this complex discharge summary . Patient Condition at Discharge: Undetermined Plan - Discharge Summary Discharge Rx Participant: No New Discharge Prescriptions: New ALPRAZolam [Xanax] 0.25 mg PO Q6HR PRN #28 tab PRN Reason: Anxiety methylPREDNISolone [Medrol Dose Pack] 4 mg PO DIRECTED #1 pack Discharge Medication List ALPRAZolam [Xanax] 0.25 mg PO Q6HR PRN #28 tab 02/13/18 [Rx] methylPREDNISolone [Medrol Dose Pack] 4 mg PO DIRECTED #1 pack 02/13/18 [Rx] Follow up Appointment(s)/Referral(s): None,Stated [Primary Care Provider] - 1-2 days Deny Ayala MD [STAFF PHYSICIAN] - 1 Week Activity/Diet/Wound Care/Special Instructions: Regular diet. Activity as tolerated Discharge Disposition: HOME SELF-CARE
[2018-02-13 13:08] VITALS: BP 137/97; PULSE 85; TEMP 97.7
== END 2018-02-13 13:00 | disposition home or self-care (01) ==
LOC: EC 13:00 → 3OBS 16:08
PROVIDERS: ADMIT Internal Medicine; ATTEND Internal Medicine
DX: M94.0 Chondrocostal junction syndrome [Tietze] (principal); F41.9 Anxiety disorder, unspecified; F32.9 Major depressive disorder, single episode, unspecified; Z73.3 Stress, not elsewhere classified; J32.0 Chronic maxillary sinusitis; J32.2 Chronic ethmoidal sinusitis; Z72.89 Other problems related to lifestyle; Z83.49 Family history of other endocrine, nutritional and metabolic diseases; Z79.82 Long term (current) use of aspirin; Z82.49 Family history of ischemic heart disease and other diseases of the circulatory system
CPT/HCPCS: 99285 ×2; 96374 ×2; 36415; 94760 ×2; 93005; 80061; 80053; 82550 ×2; 82553 ×2; 83735; 84484 ×2; 85025; 85610; 85730; 71046; 70491; 71260; G0378 ×2; Q9967; J2270